=== PATIENT | female | born 1980 | race Two or more races ===

== ENCOUNTER 2017-04-30 10:23 | Emergency (ER) | payer MEDICAID ==
[~2017-04-30] VITALS: Ht 154.9 cm; Wt 70.3 kg
[2017-04-30 11:04] LABS: *BILIRUBIN,URIN NEGATIVE (NEGATIVE); *BLOOD, URINE NEGATIVE (NEGATIVE); *CLARITY,URINE CLEAR (CLEAR); *COLOR,URINE YELLOW (YELLOW); *KETONES,URINE NEGATIVE (NEGATIVE); *PROTEIN,URINE NEGATIVE (NEGATIVE); *UROBILINOGEN,URINE 0.2 E.U./dl (NORMAL); LEUKOCYTE ESTERASE ,URINE NEGATIVE (NEGATIVE); NITRITE, URINE NEGATIVE (NEGATIVE); PH,URINE 5.5 (5.0-8.0); UGLUCOSE NEGATIVE (NEGATIVE)
--- NOTE | 2017-04-30 11:06 | NUR ---
DR BRITO AT BEDSIDE FOR EVALUATION.
[2017-04-30 11:15] LABS: BACTERIA,URINE NONE SEEN /HPF (NONE SEEN); RBC,URINE NONE SEEN /HPF (0-3); WBC,URINE 0-3 /HPF (0-3)
[2017-04-30] MEDS ORDERED: KETOROLAC TROMETHAMINE 15 MG INJ IV ONE (11:15)
[2017-04-30 11:16] LABS: *URINE HCG, QUAL NEGATIVE (NEGATIVE); SQUAMOUS EPITHELIAL CELL,UR FEW /HPF (NONE SEEN)
--- NOTE | 2017-04-30 11:21 | NUR ---
LABS DRAWN/URINE SENT/SALINE LOCK PLACED/TORADOL ADMINISTERED/PT POSITIONED FOR COMFORT.
[2017-04-30 11:24] LABS: BASOPHILS # (AUTO) 0.2 K/uL (0.0-8.0); BASOPHILS % (AUTO) 2.5 % (0.0-2.0); EOSINOPHILS # (AUTO) 0.3 K/uL (0.0-0.7); EOSINOPHILS % (AUTO) 3.4 % (0.0-7.0); HEMATOCRIT 39.7 % (37-47); HEMOGLOBIN 13.2 G/DL (12.0-16.0); LYMPHOCYTES # (AUTO) 1.4 K/UL (0.8-4.8); LYMPHOCYTES % (AUTO) 17.7 % (20.5-51.5); MEAN CORPUSCULAR HEMOGLOBIN 29.4 UUG (27.0-31.0); MEAN CORPUSCULAR HGB CONC 33 g/dL (32.0-37.0); MEAN CORPUSCULAR VOLUME 88.2 FL (81.0-99.0); MONOCYTES # (AUTO) 0.7 K/UL (0.1-1.30); MONOCYTES % (AUTO) 9.6 % (0.0-11.0); NEUTROPHILS # (AUTO) 5.1 K/UL (1.8-8.9); NEUTROPHILS % (AUTO) 66.8 % (38.5-71.5); PLATELET COUNT (AUTO) 264 K/UL (150-450); WHITE BLOOD COUNT (AUTO) 7.7 K/UL (4.0-11.2)
[2017-04-30] MEDS ORDERED: KETOROLAC TROMETHAMINE 15 MG INJ ONE (11:25)
[2017-04-30 11:31] LABS: CREATININE 0.8 mg/dL (0.6-1.3); POTASSIUM 4.7 mmol/L (3.5-5.1)
[2017-04-30 11:36] LABS: BILIRUBIN,DIRECT 0.1 mg/dL (0.0-0.2); BILIRUBIN,TOTAL 0.6 mg/dL (0.2-1.0); TOTAL PROTEIN, SERUM 7.6 g/dL (6.4-8.2)
[2017-04-30] MEDS ORDERED: FLUCONAZOLE 100 MG TABLET PO ONE (12:45)
--- NOTE | 2017-04-30 12:46 | NUR ---
MSE COMPLETED, MEDS ADMINISTERED. NM D/C'D HOME, ACI X 1 GIVEN. PT GOT DRESSED AND AMBULATED W/O DIFF/TOOK ALL BELONGINGS.
[2017-04-30 12:49] VITALS: BP 105/55
[2017-04-30] MEDS ORDERED: FLUCONAZOLE 100 MG TABLET ONE (12:51)
== END 2017-04-30 12:40 | disposition home or self-care (01) ==
LOC: ER 10:25
DX: N83.202 Unspecified ovarian cyst, left side (principal)
CPT/HCPCS: 36415; 76856; 83605; 83690; 84703; 85025; 87040; A4663; J1885